=== PATIENT | female | born 1945 | race Caucasian/White ===

== ENCOUNTER 2017-06-08 16:23 | Emergency (ER) | payer MEDICARE, OTHER ==
[~2017-06-08] VITALS: Ht 152.4 cm; Wt 84.0 kg
[~2017-06-08 16:23] MED LIST: Accucheck XX; DILT180C75 PO; GABA300C16 PO; GLIM2TAB PO; LISI-313 PO; METH10TA97 PO; PANT40TA3 PO; SITA100T8 PO
[2017-06-08 16:26] VITALS: Ht 152.4 cm; Wt 84.0 kg
[2017-06-08] MEDS ORDERED: SOD CHLORIDE 0.9% 1,000 ML IV STA ×2 (16:44→18:30)
[2017-06-08] MEDS ORDERED: DILTIAZEM-D5W 125MG/125ML DRIP 125 ML IV STA (16:44)
[2017-06-08] MEDS ORDERED: DILTIAZEM 25 MG INJ IV STA (16:44)
[2017-06-08] MEDS ORDERED: ONDANSETRON 4 MG INJ IV STA ×2 (16:44→18:30)
[2017-06-08] MEDS ORDERED: FAMOTIDINE 20 MG INJ IV STA (16:44)
[2017-06-08 16:57] LABS: BASOPHIL # 0.1 10^3/ul (0.0-0.1); BASOPHILS % 0.4 % (0.0-2.0); EOSINOPHILS % 0.3 % (0.0-7.0); HEMATOCRIT 44.1 % (37.0-47.0); HEMOGLOBIN 14.3 g/dl (12.0-16.0); LYMPHOCYTES # 0.8 10^3/ul (0.8-2.9); LYMPHOCYTES % 6.6 % (15.0-51.0); MEAN CORPUSCULAR HEMOGLOBIN 28.2 pg (29.0-33.0); MEAN CORPUSCULAR HGB CONC 32.4 g/dl (32.0-37.0); MEAN PLATELET VOLUME 9.1 fl (7.4-10.4); MONOCYTE # 0.7 10^3/ul (0.3-0.9); MONOCYTES % 5.9 % (0.0-11.0); NEUTROPHIL # 10.4 10^3/ul (1.6-7.5); NEUTROPHILS % 86.5 % (39.0-77.0); PLATELET COUNT 294 10^3/UL (140-415); RED BLOOD COUNT 5.07 10^6/ul (4.20-5.40); RED CELL DISTRIBUTION WIDTH 13.4 % (11.5-14.5)
--- NOTE | 2017-06-08 17:05 | ERD ---
ER Documentation Chief Complaint Chief Complaint pt bib daughter with c/o nausea, feeling sob, palp hx pacemaker HPI This is a 71-year-old female with a known history of hypertension and atrial fibrillation who presents to the emergency department complaining of multiple episodes of nonbloody nonbilious emesis that occurred 5 hours prior to arrival. Indicates she does have a history of a very sensitive stomach with gastritis and has had multiple similar episodes over the past several years. The last time the patient ate was roughly 24 hours prior to arrival. She ate dinner which included eggplant, broccoli salad with eggs. When she woke this morning she felt nauseous. Just prior to the patient's vomiting and diarrhea she had a diffuse abdominal cramping. The abdominal cramping has been intermittent and is only present just prior to her loose stool and emesis. Roughly several hours prior to arrival shortly after she had another episode of nonbloody nonbilious emesis she states she became very short of breath. She has a history of atrial fibrillation and a cardiac pacemaker on aspirin and Plavix. She felt palpitations but denied any chest pain or pressure that radiated to the neck arm back or jaw. She denies any recent travel or prolonged immobilization. She has no swelling of her lower extremities. She states she has been compliant with all of her medications. Her primary care physician is Dr. Howard. ROS All systems reviewed and are negative except as per history of present illness. Medications Home Meds Active Scripts Diltiazem Hcl* (Cardizem CD*) 180 Mg Cap.sr.24h, 180 MG PO DAILY for 30 Days, # 30 BOTTLE Prov:ALICIA ANGLIN MD 05/15/16 Reported Medications Carvedilol* (Coreg*) 6.25 Mg Tablet, 6.25 MG PO BID, #60 TAB 06/08/17 Valsartan* (Diovan*) 80 Mg Tablet, 80 MG PO DAILY, TAB 06/08/17 Clopidogrel Bisulfate (Clopidogrel) 75 Mg Tablet, 75 MG PO DAILY, #30 TAB 06/08/17 Aspirin* (Aspirin* Chew) 81 Mg Tab.chew, 81 MG PO DAILY, TAB.CHEW 06/08/17 Sitagliptin* (Januvia*) 100 Mg Tablet, 100 MG PO DAILY 06/14/12 Glimepiride* (Glimepiride*) 2 Mg Tablet, 2 MG PO DAILY 06/14/12 Discontinued Reported Medications Gabapentin* (Gabapentin*) 300 Mg Capsule, 300 MG PO BID 06/14/12 Methimazole* (Tapazole*) 10 Mg Tablet, 10 MG PO BID 06/14/12 Pantoprazole* (Protonix*) 40 Mg Tablet.dr, 40 MG PO DAILY 06/14/12 Discontinued Scripts Lisinopril* (Lisinopril*) 5 Mg Tablet, 5 MG PO DAILY for 30 Days, #30 TAB Prov:ALICIA ANGLIN MD 05/15/16 [Accucheck] 1 EA EA No Conflict Check, 1 EA XX 02, #60 BOX Prov:ALICIA ANGLIN MD 05/15/16 Allergies Allergies: Coded Allergies: Penicillins (Verified Allergy, 06/14/12) PMhx/Soc History of Surgery: Yes (hysterectomy, removal of ovaries, appendectomy, pacemaker) Anesthesia Reaction: No Hx Neurological Disorder: No Hx Respiratory Disorders: No Hx Cardiac Disorders: Yes (patient has pacemaker, HTN) Hx Psychiatric Problems: No Hx Miscellaneous Medical Probl: Yes (hysterectomy, ovaries removal, appecdectomy) Hx Alcohol Use: No Hx Substance Use: No Hx Tobacco Use: No Physical Exam Vitals Vital Signs Date Time Temp Pulse Resp B/P Pulse Ox O2 Delivery O2 Flow Rate FiO2 06/08/17 19:30 100.1 101 16 132/61 99 06/08/17 17:59 119 18 155/75 99 Room Air 06/08/17 16:26 98.3 122 24 128/60 98 Physical Exam Constitutional:Well-developed. Well-nourished. HEENT:Normocephalic. Atraumatic.Pupils were equal round reactive to light. Dry mucous membranes.No tonsillar exudates. Neck: No nuchal rigidity. No lymphadenopathy. No posterior cervical spine tenderness or step-offs. Respiratory: Not using accessory muscles of respiration.Lungs were clear to auscultation bilaterally. No rhonchi. No rales. No wheezing. Cardiovascular: Tachycardic with irregular irregular rhythm.No murmurs. No rubs were appreciated.S1, S2 normal. Distal pulses are palpable 2+ bilaterally. GI: Abdomen was soft. Nontender. Non Distended. No pulsatile abdominal masses or bruits. No rebound. No guarding. Bowel sounds were present and normal. Previous vertical incision scar below the umbilicus from total abdominal hysterectomy in 2002 when the patient was diagnosed with ovarian cancer Muscle skeletal: Full range of motion of both the upper and lower extremities bilaterally.Normal muscle tone.No assymetrical calf tenderness or swelling. Skin: No petechia, no purpura. No lesions on the palms or the soles of the feet. No maculopapular rash. NEURO: Patient was alert, awake, orientated x3.No facial droop. Gait observed and normal with no ataxia.Speech had regular rate and rhythm. No focal neurological deficits. Result Diagram: 06/08/170 06/08/17 165 Results 24 hrs Laboratory Tests Test 06/08/17 16:50 White Blood Count 12.010^3/ul Red Blood Count 5.0710^6/ul Hemoglobin 14.3g/dl Hematocrit 44.1% Mean Corpuscular Volume 87.0fl Mean Corpuscular Hemoglobin 28.2pg Mean Corpuscular Hemoglobin Concent 32.4g/dl Red Cell Distribution Width 13.4% Platelet Count 60898^3/UL Mean Platelet Volume 9.1fl Neutrophils % 86.5% Lymphocytes % 6.6% Monocytes % 5.9% Eosinophils % 0.3% Basophils % 0.4% Nucleated Red Blood Cells % 0.0/100WBC Neutrophils # 10.410^3/ul Lymphocytes # 0.810^3/ul Monocytes # 0.710^3/ul Eosinophils # 0.010^3/ul Basophils # 0.110^3/ul Nucleated Red Blood Cells # 0.010^3/ul Prothrombin Time 13.4Sec Prothrombin Time Ratio 1.0 INR International Normalized Ratio 1.01 Activated Partial Thromboplast Time 25.3Sec Sodium Level 143mmol/L Potassium Level 4.7mmol/L Chloride Level 97mmol/L Carbon Dioxide Level 30mmol/L Anion Gap 21 Blood Urea Nitrogen 19mg/dl Creatinine 0.83mg/dl Glucose Level 224mg/dl Calcium Level 10.5mg/dl Total Bilirubin 0.4mg/dl Direct Bilirubin 0.00mg/dl Indirect Bilirubin 0.4mg/dl Aspartate Amino Transf (AST/SGOT) 28IU/L Alanine Aminotransferase (ALT/SGPT) 36IU/L Alkaline Phosphatase 74IU/L Creatine Kinase 53IU/L Creatine Kinase Index 1.7 Creatinine Kinase MB (Mass) 0.91ng/ml Troponin I < 0.012ng/ml B-Type Natriuretic Peptide 1510PG/ML Total Protein 8.9g/dl Albumin 5.3g/dl Globulin 3.60g/dl Albumin/Globulin Ratio 1.47 Amylase Level 89U/L Lipase 78U/L Current Medications Medications (Trade) Dose Ordered Sig/Carlyle Route PRN Reason Start Time Stop Time Status Last Admin Dose Admin Diltiazem HCl 20 mg 20 mg ONCE STAT IV 06/08/17 16:44 06/08/17 16:45 Cancel Diltiazem HCl 125 ml @ 5 mls/hr ONCE STAT IV 06/08/17 16:44 06/09/17 17:43 Cancel Sodium Chloride (NS) 1,000 ml @ 1,000 mls/hr Q1H STAT IV 06/08/17 16:44 06/08/17 17:43 DC 06/08/17 17:05 Ondansetron HCl (Zofran Inj) 4 mg ONCE STAT IV 06/08/17 16:44 06/08/17 16:46 DC 06/08/17 17:04 Famotidine (Pepcid Iv) 20 mg ONCE STAT IV 06/08/17 16:44 06/08/17 16:46 DC 06/08/17 17:05 IV Flush 10 ml 10 ml STK-MED ONCE .ROUTE 06/08/17 18:14 06/08/17 18:15 DC Sodium Chloride (NS) 100 ml @ ud STK-MED ONCE .ROUTE 06/08/17 18:14 06/08/17 18:15 DC Iodixanol 100 ml 100 ml STK-MED ONCE .ROUTE 06/08/17 18:14 06/08/17 18:15 DC Sodium Chloride (NS) 1,000 ml @ 1,000 mls/hr Q1H STAT IV 06/08/17 18:30 06/08/17 19:29 DC 06/08/17 19:16 Ondansetron HCl (Zofran Inj) 4 mg ONCE STAT IV 06/08/17 18:30 06/08/17 18:31 DC Procedures/MDM The patient presented to the emergency department with shortness of breath. My differential diagnosis included but was not limited to upper airway obstruction , CHF, pulmonary embolism, cardiac ischemia, pneumonia, pneumothorax, anemia, drug overdose, pulmonary edema, COPD or asthma. 12 Lead EKG tracing ordered and reviewed by myself showed: Tachycardic with irregularly irregular rhythm of 124 bpm and no arrhythmia. IA interval not appreciated is patient had no P waves secondary to atrial fibrillation with RVR QRS duration normal. No ST segment elevation No ST segment depression. No changes consistent with acute ischemia. 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 The patient had signs of clinical dehydration secondary to the emesis and diarrhea. Patient received a liter bolus of 0.9 normal saline. She was given Zofran as an antiemetic and IV Pepcid. Given that the patient was short of breath I did feel is necessary to obtain a CT scan of the patient's chest and there is no evidence of a pulmonary embolism. The patient's A. fib with RVR resolved after 20 mg of Cardizem and IV fluids. The patient had no elevation in her cardiac enzymes and I did feel her palpitations were result of her vomiting and diarrhea that likely was a viral etiology. The patient states she felt comfortable being discharged home however was offered a trial of admission. Her daughter was present during her emergency room visit and stated that they will follow-up with her primary care physician on an outpatient basis. She was sent home with antiemetics. The patient was discharged home in fair condition. They were instructed to return to the emergency department at any time if there was any worsening of their condition. The patient stated they would follow up with their PCP in the next 24-48 hours to initiate a suitable medication regimen under the care of their PCP as well as to allow their PCP to monitor any drug reactions. The patient was discharged home with prescriptions after they gave informed consent to the new medication. They were also fully informed by myself on the adverse effects and adverse drug interactions in order to provide adequate safeguards to prevent possible adverse reactions to medications. Departure Diagnosis: Primary Impression: Atrial fibrillation with RVR Additional Impressions: Nausea vomiting and diarrhea Dehydration, mild Condition: Fair [employer] SPICER Jun 08, 2017 17:05
[2017-06-08 17:20] LABS: ALANINE AMINOTRANSFERASE 36 IU/L (13-69); ALBUMIN 5.3 g/dl (3.3-4.9); ALBUMIN/GLOBULIN RATIO 1.47; ALKALINE PHOSPHATASE 74 IU/L (42-121); ANION GAP 21 (8-16); ASPARTATE AMINO TRANSFERASE 28 IU/L (15-46); BILIRUBIN,INDIRECT 0.4 mg/dl (0-1.1); BILIRUBIN,TOTAL 0.4 mg/dl (0.2-1.3); BLOOD UREA NITROGEN 19 mg/dl (7-20); CALCIUM 10.5 mg/dl (8.4-10.2); CARBON DIOXIDE 30 mmol/L (21-31); CHLORIDE 97 mmol/L (97-110); CREATINE KINASE 53 IU/L (23-200); CREATININE 0.83 mg/dl (0.44-1.00); GLUCOSE 224 mg/dl (70-220); POTASSIUM 4.7 mmol/L (3.5-5.1); SODIUM 143 mmol/L (135-144); TOTAL PROTEIN 8.9 g/dl (6.1-8.1)
[2017-06-08 17:23] LABS: INR 1.01; PROTIME 13.4 Sec (11.9-14.9)
[2017-06-08 17:24] LABS: PARTIAL THROMBOPLASTIN TIME 25.3 Sec (25.0-35.0)
[2017-06-08 17:32] LABS: B-TYPE NATRIURETIC PEPTIDE 1510 PG/ML (0-125); CK-MB 0.91 ng/ml (0.0-2.4)
[2017-06-08 17:35] LABS: TROPONIN-I < 0.012 ng/ml (0.00-0.12)
--- NOTE | 2017-06-08 17:52 | RADRPT ---
PROCEDURE: XR Chest. CLINICAL INDICATION: Shortness of breath TECHNIQUE: Single portable view of the chest was obtained COMPARISON: June 14, 2012 FINDINGS: The trachea is midline. The cardiac silhouette is enlarged and pulmonary vascularity are within norm al limits. The lungs are clear. The costophrenic angles are sharp. There is a dual lead left-sided p acer device. IMPRESSION: 1. Cardiomegaly. No evidence of acute cardiopulmonary disease. RPTAT: AAPP Physician Tulio Date Time Electronically viewed and signed by Afshin Tapia Physician on 06/08/2017 17:52 NICHOLE/
[2017-06-08] MEDS ORDERED: ASPI81TA3 PO (18:01)
[2017-06-08] MEDS ORDERED: CLOP75TA27 PO (18:01)
[2017-06-08] MEDS ORDERED: VALS80TA2 PO (18:03)
[2017-06-08] MEDS ORDERED: CARV6.25 PO (18:12)
[2017-06-08] MEDS ORDERED: SOD CHLORIDE 0.9% 100 ML ONE (18:14)
[2017-06-08] MEDS ORDERED: IODIXANOL LOCM 100 ML BTL ONE (18:14)
--- NOTE | 2017-06-08 19:40 | RADRPT ---
PROCEDURE: CTA Chest. CLINICAL INDICATION: chest pain TECHNIQUE: The study was performed utilizing a multidetector CT scanner. Direct spiral 1 mm axial sections were obtained from the thoracic inlet to the upper abdomen with the use of 100 cc of Omnip aque 350 nonionic intravenous contrast material and reformatted at 3 mm. Coronal, sagittal and 3-D a ngiographic reformations were obtained. The images were reviewed on a PACS workstation. CT D I 56 mCi Dose 612 mGy/cm Individualized dose optimization technique was used for the performance of this exam. This included 1. Automated exposure control. 2. Adjustment of the mA and / or kV according to the patient's size. 3. Use of iterative reconstruction technique. COMPARISON: No prior studies are available for comparison. FINDINGS: There is no central or peripheral pulmonary embolism. Thoracic aorta is normal with no dissection o r aneurysm. No lung infiltrate or mass is seen. There is no hilar or mediastinal adenopathy or mass . No pleural or pericardial effusion is visualized. There is no pneumothorax. Pacemaker wires are present in the heart. There is cardiomegaly. No upper abdominal or adrenal mass is present. The osseous structures appear normal. IMPRESSION: No pulmonary embolism. No thoracic aortic aneurysm or dissection. No pneumonia. Cardiomegaly. .Nic Cohen MD, MD Date Time Electronically viewed and signed by .Nic Cohen MD, on 06/08/2017 19:40 .A/
[2017-06-08] MEDS ORDERED: ONDA4TAB14 PO (20:41)
[2017-06-08 21:00] VITALS: BP 137/66; PULSE 88; RESP 14; TEMP 99.1
== END 2017-06-08 21:10 | disposition home or self-care (01) ==
LOC: E/R 16:23
DX: I48.91 Unspecified atrial fibrillation (principal); R40.2252 Coma scale, best verbal response, oriented, at arrival to emergency department; R19.7 Diarrhea, unspecified; E86.0 Dehydration; I10 Essential (primary) hypertension; R40.2142 Coma scale, eyes open, spontaneous, at arrival to emergency department; R40.2362 Coma scale, best motor response, obeys commands, at arrival to emergency department; Z79.82 Long term (current) use of aspirin; Z79.84 Long term (current) use of oral hypoglycemic drugs; Z95.0 Presence of cardiac pacemaker
CPT/HCPCS: 36415; 71010; 71275; 80053; 82150; 82550; 82553; 83690; 83880; 84484; 85025; 85610; 85730; 93005; 96374; 96375; 99285; J2405; J7030; Q9967

== ENCOUNTER 2018-03-14 21:25 | Emergency (ER) | END 2018-03-15 00:46 | disposition home or self-care (01) ==

== ENCOUNTER 2018-03-20 04:47 | Emergency (ER) | END 2018-03-20 07:28 | disposition home or self-care (01) ==

== ENCOUNTER 2018-04-04 21:21 | Emergency (ER) | END 2018-04-05 01:37 | disposition home or self-care (01) ==

== ENCOUNTER 2018-05-25 10:01 | Inpatient (IN) | END 2018-05-28 19:03 | disposition home health service (06) | DRG 690 ==

== ENCOUNTER 2018-06-29 18:58 | Inpatient (IN) | payer MEDICARE, OTHER ==
[~2018-06-29] VITALS: Ht 160 cm; Wt 87.0 kg
[~2018-06-29 18:58] MED LIST changes: +ASPI-903 PO; -Accucheck XX; +CARV6.25 PO; +CLOP75TA27 PO; -DILT180C75 PO; -GABA300C16 PO; -LISI-313 PO; +LOPE2CAP PO; -METH10TA97 PO; +ONDA4TAB14 PO; -PANT40TA3 PO; +SITA100T11 PO; -SITA100T8 PO
[2018-06-29] MEDS ORDERED: SOD CHLORIDE 0.9% 500 ML IV STA ×2 (19:29→21:06)
[2018-06-29] MEDS ORDERED: ONDANSETRON 4 MG INJ IV STA (19:29)
[2018-06-29] MEDS ORDERED: morphine 2 MG INJ IV STA (19:29)
--- NOTE | 2018-06-29 19:29 | ERD ---
ER Documentation Chief Complaint Chief Complaint DIZZY, WEAK, NEAR SYNCOPE X'S 2 DAYS HPI 72-year-old female history of diabetes, hypertension, chronic atrial fibrillation, coronary artery disease, pacemaker, remote ovarian cancer status post hysterectomy and bilateral oophorectomy, chronic diarrhea presents to the ED complaining of a 1 day history of moderate, moderate, generalized, nonradiating abdominal pain with nausea and multiple episodes of nonbloody nonbilious emesis. No diarrhea or constipation. No dysuria, polyuria hematuria. Denies chest pain, palpitations or shortness of breath. No relieving or exacerbating factors. No fevers or chills. ROS All systems reviewed and are negative except as per history of present illness. Medications Home Meds Active Scripts Loperamide Hcl* (Imodium*) 2 Mg Capsule, 2 MG PO .AFTER EA LOOSE BM PRN for DIARRHEA, #10 TAB Prov:CHRISTIAN GONZALEZ MD 04/05/18 Ondansetron (Ondansetron Odt) 4 Mg Tab.rapdis, 4 MG PO Q6H PRN for NAUSEA AND/OR VOMITING, #10 TAB Prov:CHRISTIAN GONZALEZ MD 04/05/18 Reported Medications Carvedilol* (Coreg*) 6.25 Mg Tablet, 6.25 MG PO BID, #60 TAB 06/08/17 Clopidogrel Bisulfate (Clopidogrel) 75 Mg Tablet, 75 MG PO DAILY, #30 TAB 06/08/17 Aspirin* (Aspirin* Chew) 81 Mg Tab.chew, 81 MG PO DAILY, TAB.CHEW 06/08/17 Sitagliptin* (Januvia*) 100 Mg Tablet, 100 MG PO DAILY 06/14/12 Glimepiride* (Glimepiride*) 2 Mg Tablet, 2 MG PO DAILY 06/14/12 Allergies Allergies: Coded Allergies: Penicillins (Unverified Allergy, Unknown, 05/23/18) PMhx/Soc Reviewed in chart. As per HPI. 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 No family history relevant to presenting complaint Physical Exam Vitals Temperature: 98.3. Blood pressure: 125/80. Pulse: 85. Respirations: 20. O2 saturation 100%. Physical Exam Const: Moderate distress. Head: Atraumatic Eyes: Normal Conjunctiva ENT: Normal External Ears, Nose and Mouth. Neck: Full range of motion. No JVD. Nontender. Resp: BS equal and clear to auscultation bilaterally Cardio: Irregular rate and rhythm, no murmurs Abd: Soft, distended, diffuse, moderate tenderness. No rebound or guarding. Skin: No petechiae or rashes Back: No midline or flank tenderness Ext: No cyanosis, or edema Neur: Awake and alert. Psych: Anxious but not depressed Result Diagram: 06/30/18 0552 06/30/18 0552 Results 24 hrs Laboratory Tests Test 06/29/18 20:09 06/29/18 20:10 Urine Color YELLOW Urine Clarity SLIGHTLY CLOUDY Urine pH 6.0 Urine Specific Helm 1.009 Urine Ketones TRACE mg/dL Urine Nitrite NEGATIVE mg/dL Urine Bilirubin NEGATIVE mg/dL Urine Urobilinogen NEGATIVE mg/dL Urine Leukocyte Esterase 3+ Jen/ul Urine Microscopic RBC 1 /HPF Urine Microscopic WBC > 182 /HPF Urine Bacteria FEW /HPF Urine Hemoglobin 1+ mg/dL Urine Glucose NEGATIVE mg/dL Urine Total Protein NEGATIVE mg/dl White Blood Count 14.8 10^3/ul Red Blood Count 4.82 10^6/ul Hemoglobin 13.2 g/dl Hematocrit 40.8 % Mean Corpuscular Volume 84.6 fl Mean Corpuscular Hemoglobin 27.4 pg Mean Corpuscular Hemoglobin Concent 32.4 g/dl Red Cell Distribution Width 15.3 % Platelet Count 373 10^3/UL Mean Platelet Volume 9.1 fl Immature Granulocytes % 0.300 % Neutrophils % 83.9 % Lymphocytes % 11.2 % Monocytes % 3.6 % Eosinophils % 0.7 % Basophils % 0.3 % Nucleated Red Blood Cells % 0.0 /100WBC Immature Granulocytes # 0.050 10^3/ul Neutrophils # 12.4 10^3/ul Lymphocytes # 1.7 10^3/ul Monocytes # 0.5 10^3/ul Eosinophils # 0.1 10^3/ul Basophils # 0.0 10^3/ul Nucleated Red Blood Cells # 0.0 10^3/ul Sodium Level 138 mmol/L Potassium Level 4.9 mmol/L Chloride Level 93 mmol/L Carbon Dioxide Level 31 mmol/L Anion Gap 14 Blood Urea Nitrogen 30 mg/dl Creatinine 1.09 mg/dl Est Glomerular Filtrat Rate mL/min mL/min Glucose Level 169 mg/dl Calcium Level 9.9 mg/dl Total Bilirubin 0.3 mg/dl Direct Bilirubin 0.00 mg/dl Indirect Bilirubin 0.3 mg/dl Aspartate Amino Transf (AST/SGOT) 22 IU/L Alanine Aminotransferase (ALT/SGPT) 20 IU/L Alkaline Phosphatase 71 IU/L Troponin I < 0.012 ng/ml Total Protein 7.8 g/dl Albumin 4.7 g/dl Globulin 3.10 g/dl Albumin/Globulin Ratio 1.51 Lipase 128 U/L Current Medications Medications Dose Sig/Carlyle Start Time Status Last (Trade) Ordered Route PRN Stop Time Admin Dose Reason Admin Sodium 500 ml @ Q1H STAT 06/29/18 DC 06/29/18 Chloride 500 mls/hr IV 19:29 20:00 06/29/18 20:28 Morphine 2 mg ONCE STAT 06/29/18 DC 06/29/18 Sulfate IV 19:29 20:00 (morphine) 06/29/18 19:31 Ondansetron 4 mg ONCE STAT 06/29/18 DC 06/29/18 HCl (Zofran IV 19:29 20:00 Inj) 06/29/18 19:31 IV Flush 10 ml STK-MED 06/29/18 DC 06/29/18 (NS 10 ml) ONCE .ROUTE 19:48 19:48 06/29/18 19:49 Sodium 100 ml @ ud STK-MED 06/29/18 DC 06/29/18 Chloride ONCE .ROUTE 19:48 19:48 06/29/18 19:49 Iohexol 150 ml STK-MED 06/29/18 DC 06/29/18 (Omnipaque ONCE .ROUTE 19:48 19:48 300mg/ ml) 06/29/18 19:49 Sodium 500 ml @ Q1H STAT 06/29/18 DC 06/29/18 Chloride 500 mls/hr IV 21:06 21:10 06/29/18 22:05 Procedures/MDM DOCUMENTS REVIEWED: ED nurse, prior ED, prior records EKG: Time: 1923. Atrial fibrillation. Ventricular rate 74. Normal QRS. No acute ST segment elevation or depression. T wave inversions in leads III and aVF. My Interpretation IMAGING: Chest AP portable: Cardiomegaly. Costophrenic angles are clear. No effusions or infiltrates. Left-sided pacemaker with leads intact. No mediastinal widening. My interpretation. PROCEDURE: CT Abdomen and Pelvis with contrast. CLINICAL INDICATION: Abdominal pain. TECHNIQUE: CT scan of the abdomen and pelvis with contrast was performed on a multi-detector high-resolution CT scanner. The patient was scanned following the uncomplicated intravenous administration of 100 cc of Omnipaque 300. Coronal and sagittal reformatted images were obtained from the axial source images. Images were reviewed on a high-resolution PACS workstation. The total exam CTDI equals 18.06 mGy and the total exam DLP equals 1030.71 mGy-cm. DICOM images are available. One or more of the following dose reduction techniques were utilized: 1.) Automated exposure control 2.) Adjustment of the mA +/- kV according to patient's size 3.) Use of iterative reconstruction technique. COMPARISON: None. FINDINGS: CT abdomen: The lung bases are clear. The heart size is enlarged, without pericardial thickening or effusion. The liver is normal in size and density without focal mass or intrahepatic biliary dilatation. The spleen is normal in size and homogeneous in density. The stomach is partially collapsed, but is grossly unremarkable. The pancreas as visualized is normal. The gallbladder and biliary tree are unremarkable and there is no evidence for biliary dilatation. 14 mm indeterminate nodule in the left adrenal. An MRI examination may be of further use. Small cysts are seen in the left kidney, measuring up to 22 mm. Partial duplication of the bilateral kidneys. Otherwise, the bilateral kidneys are symmetrically unremarkable. No renal calculus or obstructive uropathy or mass lesion is seen. The aorta is of normal caliber. The abdominal aorta is tortuous. Aortic vascular calcifications are present. There is no retroperitoneal lymphadenopathy. The shazia hepatis region is clear. Dilated fluid and air-filled loops of small bowel measure up to 33 mm with narrow caliber distal and terminal ileum. Findings compatible small bowel obstruction. CT pelvis: Dilated loops of air and fluid-filled small bowel seen in the pelvis with transition to narrow caliber distal and terminal ileum. Small bowel obstruction. The pelvic organs are otherwise normal. The pelvic sidewalls and inguinal regions are clear. The sigmoid colon and rectum are remarkable for mild proximal sigmoid diverticulosis. No mass or adenopathy is seen. No free fluid is identified. No acute inflammation is seen. The bladder is normal. The surrounding osseous structures are remarkable for moderate degenerative changes at the L3-4 L5-S1 levels with disc space narrowing and near bone on bone articulation at the L3-4 level. Posterior facet degenerative changes are seen at these levels, greater on the left at the L5-S1 level. No osteolytic or osteoblastic lesion is detected. IMPRESSION: 1. Small bowel obstruction. 2. 14 mm indeterminate nodule in the left adrenal. These findings and impression discussed with Dr. Pritchett of the [facility] emergency department at the conclusion of this examination by the undersigned interpreting radiologist on 06/29/2018 at 2129 hours. RPTAT: UU Physician Sun Date Time Electronically viewed and signed by Physician Sun on 06/29/2018 21:39 MEDICAL DECISION MAKIN-year-old female history of diabetes, hypertension, chronic atrial fibrillation, coronary artery disease, pacemaker, remote ovarian cancer status post hysterectomy and bilateral oophorectomy, chronic diarrhea presents to the ED complaining of a 1 day history of generalized abdominal pain with nausea and multiple episodes of nonbloody nonbilious emesis. CBC significant for leukocytosis. Chemistry reveals elevated BUN/creatinine consistent with renal insufficiency likely secondary to dehydration but no electrolyte abnormalities. LFTs are unremarkable and lipase not elevated. Urinalysis reveals pyuria. CT of the abdomen and pelvis reveals dilated loops of bowel consistent with small bowel obstruction. Patient treated with IV hydration, analgesics and antiemetics. Antibiotics initiated based on patient's previous culture positive ESBL UTI. Surgery consulted. Admit to [facility] for further evaluation and management. CALLS/CONSULTS: Time: 21:40, Dr. Contreras CALLS/CONSULTS: Time: 21:45, Dr. Bailon PATIENT CARE TRANSITIONED: Time: 12:46, Dr. Anny Mahan. Counseled patient and family regarding diagnosis, diagnostic results and plan for admission. 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
[2018-06-29] MEDS ORDERED: SOD CHLORIDE 0.9% 100 ML ONE (19:48)
[2018-06-29] MEDS ORDERED: IOHEXOL 300MG/ML 150 ML BTL ONE (19:48)
[2018-06-29] MEDS ORDERED: ACETAMINOPHEN 325 MG TAB PO PRN (22:00)
[2018-06-29] MEDS ORDERED: MEROPENEM 1 GM/50ML(PMX) 50 ML IVPB SCH (22:00)
[2018-06-29] MEDS ORDERED: ONDANSETRON 4 MG INJ IV PRN ×2 (22:00→23:00)
[2018-06-29] MEDS ORDERED: metroNIDAZOLE 500 MG/NS (PMX) 100 ML IVPB ONE (22:00)
[2018-06-29] MEDS ORDERED: ACETAMINOPHEN 650 MG SUPP PR PRN (23:00)
[2018-06-29] MEDS ORDERED: NACL 0.9% 3 ML SYG IV SCH (23:00)
[2018-06-29] MEDS ORDERED: morphine 2 MG INJ IV PRN (23:00)
[2018-06-29 23:43] VITALS: Ht 160 cm; Wt 87.0 kg
[2018-06-30] VITALS (16 sets, daily range): BP systolic 73–137; BP diastolic 45–62; PULSE 71–104; RESP 16–18
[2018-06-30] MEDS: SOD CHLORIDE 0.9% 1,000 ML IV SCH ×3 (00:19→18:26)
[2018-06-30] MEDS ORDERED: SOD CHLORIDE 0.9% 500 ML IV ONE (04:00)
--- NOTE | 2018-06-30 04:16 | NUR ---
HYPOTENSION PATIENT'S BP LOW 70/53, NOTIFIED PMD, ORDERD TO GIVE 500 CC BOLUS OF NS X 1. PATIENT REMAINED AWAKE AND ALERT.
--- NOTE | 2018-06-30 07:30 | NUR ---
EOSS: PATIENT STABILIZE WITH FLUID CHALLENGE , AFTER A 500CC OF NS BOLUS. DAUGHTER NATALIA AT BEDSIDE. WITH DIARRHEA, THAT ACCORDING TO DAUGHTER WAS CHRONIC. AFIB ON THE MONITOR.
[2018-06-30] MEDS: FAMOTIDINE 20 MG INJ IV SCH ×2 (08:34→22:11)
[2018-06-30] MEDS: ENOXAPARIN 30 MG/0.3 ML SYG SC SCH (08:43)
--- NOTE | 2018-06-30 11:17 | HP ---
Date/Time of Note Date/Time of Note DATE: 06/30/18 TIME: 11:16 Assessment/Plan VTE Prophylaxis Risk score (from Ns)>0 risk: 5 SCD applied (from Ns): No SCD contraindicated: other Pharmacological prophylaxis: LMWH Lines/Catheters IV Catheter Type (from [facility]): Peripheral IV Assessment/Plan Hospital Course 1) small bowel obstruction - NPO - IV fluids - surgery consult pending - monitor clinically 2) urinary tract infection - IV antibiotics 3) atrial fibrillation - monitor on telemetry - PO meds on hold HPI/ROS Admit Date/Time Admit Date/Time Jun 29, 2018 at 21:49 Hx of Present Illness Patient with diabetes, hypertension, atrial fibrillation s/p pacemaker placement, coronary artery disease comes in to the ER with abdominal pain, nausea and vomiting x1d. Patient was found to have small bowel obstruction. PMH/Family/Social Past Medical History Medical History: cancer, coronary artery disease, diabetes, hypertension Coded Allergies: Penicillins (Unverified Allergy, Unknown, 05/23/18) Past Surgical History Past Surgical Hx: appendectomy, other Family History Significant Family History: heart disease Social History Smoking Status: Never smoker Exam/Review of Systems Vital Signs Vitals Vital Signs Date Temp Pulse Resp B/P (MAP) Pulse Ox O2 O2 Flow FiO2 Time Delivery Rate 06/30/18 71 94/53 (67) 94 09:15 06/30/18 98.4 16 07:43 06/29/18 Room Air 22:52 Intake and Output 06/29/18 06/29/18 06/30/18 1515:00 23:00 07:00 IntakeIntake Total 1650 ml BalanceBalance 1650 ml Exam Constitutional: well developed Head: normocephalic, atraumatic Neck: supple Respiratory: diminished breath sounds Cardiovascular: regular rate and rhythm Gastrointestinal: soft, non-tender Extremities: normal pulses Medications Medications Current Medications Ondansetron HCl (Zofran Inj) 4 mg BRIDGE ORDER PRN IV NAUSEA AND/OR VOMITING; Start 06/29/18 at 22:00; Stop 06/30/18 at 21:59 Acetaminophen (Tylenol Tab) 650 mg ER BRIDGE PRN PO MILD PAIN(1-3)OR ELEVATED TEMP; Start 06/29/18 at 22:00; Stop 06/30/18 at 21:59 Meropenem/Sodium Chloride 50 ml @ 100 mls/hr ONCE IVPB Last administered on 1 08/30/17at 22:21; Admin Dose 100 MLS/HR; Start 06/29/18 at 22:00 Sodium Chloride 1,000 ml @ 100 mls/hr Q10H IV Last administered on 06/30/18at 08:34; Admin Dose 100 MLS/HR; Start 06/29/18 at 22:45 IV Flush (NS 3 ml) 3 ml PER PROTOCOL IV ; Start 06/29/18 at 23:00 Ondansetron HCl (Zofran Inj) 4 mg Q6H PRN IV NAUSEA AND/OR VOMITING Last administered on 06/30/18at 00:20; Admin Dose 4 MG; Start 06/29/18 at 23:00 Acetaminophen (Tylenol Supp) 650 mg Q6H PRN [place] PAIN LEVEL 1-3 OR FEVER; Start 06/29/18 at 23:00 Morphine Sulfate (morphine) 2 mg Q4H PRN IV PAIN LEVEL 7-10; Start 06/29/18 at 23:00 Famotidine (Pepcid Iv) 20 mg Q12 IV Last administered on 06/30/18at 08:34; Admin Dose 20 MG; Start 06/30/18 at 09:00 Enoxaparin Sodium (Lovenox) 30 mg DAILY SC Last administered on 06/30/18at 08: 43; Admin Dose 30 MG; Start 06/30/18 at 09:00 Results Result Diagram: 06/30/18 0552 06/30/18 0552 Results 24 hrs Laboratory Tests Test 06/29/18 20:09 06/29/18 20:10 06/30/18 04:03 06/30/18 05:52 Urine Color YELLOW Urine Clarity SLIGHTLY CLOUDY A Urine pH 6.0 Urine Specific 1.009 [place] Urine Ketones TRACE A Urine Nitrite NEGATIVE Urine Bilirubin NEGATIVE Urine NEGATIVE Urobilinogen Urine Leukocyte 3+ H Esterase Urine 1 Microscopic RBC Urine > 182 H Microscopic WBC Urine Bacteria FEW A Urine 1+ H Hemoglobin Urine Glucose NEGATIVE Urine Total NEGATIVE Protein White Blood 14.8 #H 7.3 # Count Red Blood Count 4.82 4.20 Hemoglobin 13.2 11.4 L Hematocrit 40.8 36.4 L Mean 84.6 86.7 Corpuscular Volume Mean 27.4 L 27.1 L Corpuscular Hemoglobin Mean 32.4 31.3 L Corpuscular Hemoglobin Conc ent Red Cell 15.3 H 15.4 H Distribution Width Platelet Count 373 299 Mean Platelet 9.1 9.1 Volume Immature 0.300 0.300 Granulocytes % Neutrophils % 83.9 H 77.9 H Lymphocytes % 11.2 L 11.5 L Monocytes % 3.6 9.2 Eosinophils % 0.7 0.8 Basophils % 0.3 0.3 Nucleated Red 0.0 0.0 Blood Cells % Immature 0.050 H 0.020 Granulocytes # Neutrophils # 12.4 H 5.7 Lymphocytes # 1.7 0.8 Monocytes # 0.5 0.7 Eosinophils # 0.1 0.1 Basophils # 0.0 0.0 Nucleated Red 0.0 0.0 Blood Cells # Sodium Level 138 141 Potassium Level 4.9 4.4 Chloride Level 93 L 102 Carbon Dioxide 31 28 Level Anion Gap 14 H 11 Blood Urea 30 H 25 H Nitrogen Creatinine 1.09 H 0.82 Est Glomerular Filtrat Rate mL/min Glucose Level 169 152 Calcium Level 9.9 8.4 Total Bilirubin 0.3 0.4 Direct 0.00 0.00 Bilirubin Indirect 0.3 0.4 Bilirubin Aspartate Amino 22 17 Transf (AST/SGO T) Alanine 20 22 Aminotransferas e (ALT/SGPT) Alkaline 71 44 Phosphatase Troponin I < 0.012 Total Protein 7.8 6.1 # Albumin 4.7 3.7 # Globulin 3.10 2.40 Albumin/Globuli 1.51 1.54 n Ratio Lipase 128 Bedside Glucose 177 Hemoglobin A1c 6.3 H NEVAEH JONAS Jun 30, 2018 11:17
[2018-06-30] MEDS ORDERED: KETOROLAC 15 MG INJ IV PRN (11:30)
[2018-06-30] MEDS ORDERED: DEXTROSE 50% 50 ML SYRINGE IV PRN ×2 (12:00)
[2018-06-30] MEDS ORDERED: GLUCAGON 1 MG INJ IM PRN (12:00)
[2018-06-30] MEDS ORDERED: GLUCOSE GEL 15 GRAM TUBE BUCCAL PRN (12:00)
[2018-06-30] MEDS: INSULIN ASPART [NOVOLOG] 3 ML PEN SC SCH ×2 (12:00→17:17)
[2018-06-30] MEDS ORDERED: GLUCOSE GEL 15 GRAM TUBE PO PRN ×2 (12:00)
--- NOTE | 2018-06-30 12:00 | CONS ---
Date/Time of Note Date/Time of Note DATE: 06/30/18 TIME: 11:47 Assessment/Plan Assessment/Plan Chief Complaint/Hosp Course 1. Abdominal pain, nausea, vomiting with CT concerning for small bowel obstruction: + Bowel function per patient -SBFT -Pain management -Antiemetics as needed -N.p.o. -NG tube (discussed with patient however refusing at this time > will continue to monitor) 2. Diverticulosis: -Lifestyle modification -Outpatient follow-up 3. Atherosclerosis: -Medical management 4. Leukocytosis: Resolved 5. Hypochromic anemia: -Monitor and transfuse as needed 6. UTI: -abx per sensitivity -frequent bladder emptying/cath care 7. Atrial fibrillation history with hypotension: Improved -Cardiac optimization 8. 14 mm adrenal nodule: -Medical follow-up Thank you. Patient seen and examined in collaboration with Dr. Wali Bailon. Consultation Date/Type/Reason Admit Date/Time Jun 29, 2018 at 21:49 Date of Consultation: Jun 30, 2018 Type of Consult Surgical Reason for Consultation Small bowel obstruction Requesting Provider: NIDHI PRITCHETT MD Hx of Present Illness Maki Combs is a 72-year-old woman with past medical history of diabetes, hypertension, atrial fibrillation status post pacemaker placement, coronary artery disease, ovarian cancer status post total hysterectomy and radiation, appendectomy who presents to the ER with complaints of abdominal pain. Abdominal pain is described as diffuse and strong times 1 day. Associated symptoms include nausea with vomiting, nonbloody emesis, dysuria. She also reports having had no bowel movements or flatus times 1 day. Notably she had a recent hospitalization and was given antibiotics for UTI for 14 days. After which, her bowel movements have become more irregular. She denies fevers, chills, congested cough, chest pain, palpitations, hematochezia, melena, hematemesis. CT imaging of the abdomen shows dilated loops of air and fluid filled small bowel seen in pelvis with transition to narrow caliber distal and terminal ileum, concerning for small bowel obstruction. General surgery was a sked to evaluate. 12 point review of systems was performed and is negative except for stated in HPI. Past Medical History Medical History: cancer, coronary artery disease, diabetes, hypertension Medications Current Medications Ondansetron HCl (Zofran Inj) 4 mg BRIDGE ORDER PRN IV NAUSEA AND/OR VOMITING; S tart 06/29/18 at 22:00; Stop 06/30/18 at 21:59 Acetaminophen (Tylenol Tab) 650 mg ER BRIDGE PRN PO MILD PAIN(1-3)OR ELEVATED TE MP; Start 06/29/18 at 22:00; Stop 06/30/18 at 21:59 Meropenem/Sodium Chloride 50 ml @ 100 mls/hr ONCE IVPB Last administered on 06/29/18at 22:21; Admin Dose 100 MLS/HR; Start 06/29/18 at 22:00 Sodium Chloride 1,000 ml @ 100 mls/hr Q10H IV Last administered on 06/30/18at 08:34; Admin Dose 100 MLS/HR; Start 06/29/18 at 22:45 IV Flush (NS 3 ml) 3 ml PER PROTOCOL IV ; Start 06/29/18 at 23:00 Ondansetron HCl (Zofran Inj) 4 mg Q6H PRN IV NAUSEA AND/OR VOMITING Last administered on 06/30/18at 00:20; Admin Dose 4 MG; Start 06/29/18 at 23:00 Acetaminophen (Tylenol Supp) 650 mg Q6H PRN [place] PAIN LEVEL 1-3 OR FEVER; Start 06/29/18 at 23:00 Morphine Sulfate (morphine) 2 mg Q4H PRN IV PAIN LEVEL 7-10; Start 06/29/18 at 23:00 Famotidine (Pepcid Iv) 20 mg Q12 IV Last administered on 06/30/18at 08:34; Admin Dose 20 MG; Start 06/30/18 at 09:00 Enoxaparin Sodium (Lovenox) 30 mg DAILY SC Last administered on 06/30/18at 08:43; Admin Dose 30 MG; Start 06/30/18 at 09:00 Meropenem/Sodium Chloride 50 ml @ 100 mls/hr Q12 IVPB ; Start 06/30/18 at 21:00 Ketorolac Tromethamine (Toradol) 15 mg Q6H PRN IV PAIN; Start 06/30/18 at 11:30; Stop 07/03/18 at 11:29 Allergies: Coded Allergies: Penicillins (Unverified Allergy, Unknown, 05/23/18) Past Surgical History As above Past Surgical Hx: appendectomy, other Family History Significant Family History: no pertinent family hx Social History Alcohol Use: none Smoking Status: Never smoker Exam/Review of Systems Vital Signs Vitals Vital Signs Date Temp Pulse Resp B/P (MAP) Pulse Ox O2 O2 Flow FiO2 Time Delivery Rate 06/30/18 71 94/53 (67) 94 09:15 06/30/18 98.4 16 07:43 06/29/18 Room Air 22:52 Intake and Output 06/29/18 06/29/18 06/30/18 1515:00 23:00 07:00 IntakeIntake Total 1650 ml BalanceBalance 1650 ml Exam Constitutional: alert, oriented Psych: nl mood/affect; No anxiety Head: normocephalic, atraumatic Eyes: nl conjunctiva, EOMI, nl sclera ENMT: nl external ears & nose, nl lips & teeth, mucosa pink and moist Neck: supple, non-tender; No jvd, No bruits, No masses, No thyromegaly, No nuchal rigidity, No other Respiratory: normal air movement; No labored breathing Cardiovascular: regular rate and rhythm, nl pulses Gastrointestinal: soft, non-tender, surgical scars; No distended, No rebound or guarding Genitourinary - Female: nl external genitalia Musculoskeletal: nl extremities to inspection, nl gait and stance Extremities: normal pulses Neurological: nl mental status, nl speech, nl strength Skin: nl turgor; No rash or lesions JAIR MEDEIROS NP Jun 30, 2018 12:00
[2018-06-30] MEDS: MEROPENEM 1 GM/50ML(PMX) 50 ML IVPB SCH ×2 (12:07→22:11)
[2018-06-30] MEDS ORDERED: IOHEXOL 300MG/ML 150 ML BTL ONE ×2 (14:05)
--- NOTE | 2018-06-30 18:23 | NUR ---
Eoss No significant changes noted at this time, no sob or distress noted. Continues with pain management, continues to refuse repositioning. Able to changes wound dressing today, tolerated well. All needs were met. Call light within reach, bed locked, and low. Will endorse accordingly
[2018-06-30] MEDS ORDERED: DILTIAZEM-D5W 125MG/125ML DRIP 125 ML IV SCH (19:00)
--- NOTE | 2018-06-30 19:20 | NUR ---
notified John PRITCHARD regarding the administration of Cardizem drip, pending from Pharmacy
--- NOTE | 2018-06-30 23:59 | NUR ---
Pt HR is sustaining between 98 and 106 since start of shift. Unable to administer cardizem as heart rate is within parameter.
[2018-07-01] VITALS (13 sets, daily range): BP systolic 121–165; BP diastolic 58–73; PULSE 84–106; RESP 16–20
[2018-07-01] MEDS: SOD CHLORIDE 0.9% 1,000 ML IV SCH ×2 (04:43→14:05)
[2018-07-01] MEDS: INSULIN ASPART [NOVOLOG] 3 ML PEN SC SCH ×4 (06:00→18:00)
--- NOTE | 2018-07-01 07:52 | NUR ---
EOSS: Pt asleep in bed. VS stable. Heart rate has been below 110 during shift. Denies SOB, pain. Blood glucose wnl. Pt denies N/V as well. Rounded on hourly, bed in locked and low position, bed alarm green, bed rail x2, call light within reach; pt reminded to call when in need of assistance. Endorsed to [facility].
[2018-07-01] MEDS: MEROPENEM 1 GM/50ML(PMX) 50 ML IVPB SCH ×2 (08:25→21:25)
[2018-07-01] MEDS: FAMOTIDINE 20 MG INJ IV SCH ×2 (08:25→21:25)
[2018-07-01] MEDS: ENOXAPARIN 30 MG/0.3 ML SYG SC SCH (09:01)
--- NOTE | 2018-07-01 11:40 | PN ---
Date/Time of Note Date/Time of Note DATE: 07/01/18 TIME: 11:40 Assessment/Plan VTE Prophylaxis Risk score (from Ns)>0 risk: 3 SCD applied (from Ns): No SCD contraindicated: other Pharmacological prophylaxis: LMWH Lines/Catheters IV Catheter Type (from Nrs): Peripheral IV Assessment/Plan Hospital Course 1) small bowel obstruction - NPO - IV fluids - surgery consult pending - monitor clinically 2) urinary tract infection - IV antibiotics 3) atrial fibrillation - monitor on telemetry - PO meds on hold Result Diagram: 06/30/18 0552 06/30/18 0552 Results 24hrs Laboratory Tests Test 06/30/18 12:05 06/30/18 17:15 06/30/18 21:16 06/30/18 23:22 Bedside Glucose 98 107 100 120 Test 07/01/18 06:05 Bedside Glucose 114 Subjective 24 Hr Interval Summary Free Text/Dictation Patient seems to be doing better, wanting to eat Exam/Review of Systems Vital Signs Vitals Vital Signs Date Temp Pulse Resp B/P (MAP) Pulse Ox O2 O2 Flow FiO2 Time Delivery Rate 07/01/18 97.8 97 17 138/73 95 11:25 (94) 07/01/18 Room Air 04:11 Intake and Output 06/30/18 06/30/18 07/01/18 1515:00 23:00 07:00 IntakeIntake Total 50 ml 900 ml BalanceBalance 50 ml 900 ml Exam Constitutional: well developed Head: normocephalic, atraumatic Neck: supple Respiratory: diminished breath sounds Cardiovascular: regular rate and rhythm Gastrointestinal: soft, non-tender Extremities: normal pulses Medications Medications Current Medications Sodium Chloride 1,000 ml @ 100 mls/hr Q10H IV Last administered on 07/01/18at 04:43; Admin Dose 100 MLS/HR; Start 06/29/18 at 22:45 IV Flush (NS 3 ml) 3 ml PER PROTOCOL IV ; Start 06/29/18 at 23:00 Ondansetron HCl (Zofran Inj) 4 mg Q6H PRN IV NAUSEA AND/OR VOMITING Last administered on 06/30/18at 00:20; Admin Dose 4 MG; Start 06/29/18 at 23:00 Acetaminophen (Tylenol Supp) 650 mg Q6H PRN [place] PAIN LEVEL 1-3 OR FEVER; Start 06/29/18 at 23:00 Morphine Sulfate (morphine) 2 mg Q4H PRN IV PAIN LEVEL 7-10; Start 06/29/18 at 23:00 Famotidine (Pepcid Iv) 20 mg Q12 IV Last administered on 07/01/18at 08:25; Admin Dose 20 MG; Start 06/30/18 at 09:00 Enoxaparin Sodium (Lovenox) 30 mg DAILY SC Last administered on 07/01/18at 09:01; Admin Dose 30 MG; Start 06/30/18 at 09:00 Meropenem/Sodium Chloride 50 ml @ 100 mls/hr Q12 IVPB Last administered on 07/01/18at 08:25; Admin Dose 100 MLS/HR; Start 06/30/18 at 12:00 Ketorolac Tromethamine (Toradol) 15 mg Q6H PRN IV PAIN; Start 06/30/18 at 11:30; Stop 07/03/18 at 11:29 Insulin Aspart (Novolog Insulin Pen) NOVOLOG *MILD* ALGORI... Q6 SC ; Start 06/30/18 at 12:00 Miscellaneous Information 1 ea NOTE XX ; Start 06/30/18 at 12:00 Glucose (Glutose) 15 gm Q15M PRN PO DECREASED GLUCOSE; Start 06/30/18 at 12:00 Glucose (Glutose) 22.5 gm Q15M PRN PO DECREASED GLUCOSE; Start 06/30/18 at 12:00 Dextrose (D50w Syringe) 25 ml Q15M PRN IV DECREASED GLUCOSE; Start 06/30/18 at 12:00 Dextrose (D50w Syringe) 50 ml Q15M PRN IV DECREASED GLUCOSE; Start 06/30/18 at 12:00 Glucagon (Glucagen) 1 mg Q15M PRN IM DECREASED GLUCOSE; Start 06/30/18 at 12:00 Glucose (Glutose) 15 gm Q15M PRN BUCCAL DECREASED GLUCOSE; Start 06/30/18 at 12:00 Diltiazem HCl 125 ml @ 5 mls/hr TITRATE IV ; Start 06/30/18 at 19:00 NEVAEH JONAS Jul 01, 2018 11:40
--- NOTE | 2018-07-01 18:06 | NUR ---
Eoss Pt + for Ecoli and ESBL of the urine, pt kept in contact isolation, educated family re. the need to wear PPE and importance of handwashing. Verbalized understanding of the instructions. No significant changes noted. Pt remains NPO. Blood sugar is stable. All needs were met, no c/o pain or discomfort noted at this time. Will endorse accordingly
--- NOTE | 2018-07-01 22:07 | PN ---
Date/Time of Note Date/Time of Note DATE: 07/01/18 TIME: 22:02 Assessment/Plan Lines/Catheters IV Catheter Type (from Nrs): Peripheral IV Assessment/Plan Chief Complaint/Hosp Course 1. Abdominal pain, nausea, vomiting with CT concerning for small bowel obstruction. SBFT with pSBO but patient with flatus and bms. Requesting liquids. -clears -monitor closely -aspiration precautions. 2. Diverticulosis: -Diet & Lifestyle modification -Outpatient follow-up 3. Atherosclerosis: -Medical management 4. Leukocytosis: Resolved 5. Hypochromic anemia: -Monitor and transfuse as needed 6. UTI: -abx per sensitivity -frequent bladder emptying/cath care 7. Atrial fibrillation history with hypotension: Improved -Cardiac optimization 8. 14 mm adrenal nodule: -Medical follow-up 9. BMI 34 -nutrition and medication optimization -weight loss encouraged 10. 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 WBC normal. Pain improved to 3/10. No n/v. No f/c. No cp/sob. No cough. No sz. Multiple liquid bms. Flatus. Feels better. No singh/visual/neuro changes. Exam/Review of Systems Vital Signs Vitals Vital Signs Date Temp Pulse Resp B/P (MAP) Pulse Ox O2 O2 Flow FiO2 Time Delivery Rate 07/01/18 97.8 84 20 138/65 96 20:01 (89) 07/01/18 Room Air 04:11 Intake and Output 06/30/18 06/30/18 07/01/18 1515:00 23:00 07:00 IntakeIntake Total 50 ml 900 ml BalanceBalance 50 ml 900 ml Exam Free Text/Dictation Constitutional: alert, oriented Psych: nl mood/affect; No anxiety Head: normocephalic, atraumatic Eyes: nl conjunctiva, EOMI, nl sclera ENMT: nl external ears & nose, nl lips & teeth, mucosa pink and moist Neck: supple, non-tender; No jvd, No bruits, No masses, No thyromegaly, No nuchal rigidity, No other Respiratory: normal air movement; No labored breathing Cardiovascular: regular rate and rhythm, nl pulses Gastrointestinal: soft, min tender to deep palpation lower abdomen, surgical scars; No distended, No rebound or guarding Genitourinary - Female: nl external genitalia Musculoskeletal: nl extremities to inspection, nl gait and stance Extremities: normal pulses Neurological: nl mental status, nl speech, nl strength Skin: nl turgor; No rash or lesions Results Free Text/Dictation SBFT: The case work aide radiographs demonstrates dilated small bowel loops measuring up to approximate 5 cm diameter, dual chamber cardiac pacemaker leads, additional right ventricular cardiac pacemaker lead, surgical clips in the left upper pelvis, levoscoliosis of the lumbar spine, degenerative enthesopathy in lumbar spine, calcification in abdominal aorta and mild osteitis pubis Ingested contrast is seen in the unremarkable stomach, duodenum, nondilated and dilated loops of jejunum and ileum measuring up to approximately 5 cm diameter with contrast in the colon to the level of the proximal descending colon by 6 hours post ingestion suggestive of a partial distal small bowel obstruction. IMPRESSION: Findings suggestive of partial distal small bowel obstruction as noted above. Please see above. Result Diagram: 06/30/18 0552 06/30/18 0552 WILMAN COOPER MD Jul 01, 2018 22:07
[2018-07-02] VITALS (12 sets, daily range): BP systolic 125–152; BP diastolic 62–84; PULSE 75–93; RESP 18–20
[2018-07-02] MEDS: SOD CHLORIDE 0.9% 1,000 ML IV SCH ×4 (00:46→20:45)
[2018-07-02] MEDS: INSULIN ASPART [NOVOLOG] 3 ML PEN SC SCH ×4 (06:00→17:24)
--- NOTE | 2018-07-02 06:22 | NUR ---
EOSS: Pt asleep in bed. VS stable. HR <110 throughout shift. Denies pain, SOB, and N/V. Diet has been advanced to clear liquid, pt tolerating well. Blood glucose wnl; no coverage needed. Poss d/c today. Aox4, bed in locked and low position, bed alarm green, bed railx2, call light within reach; pt reminded to call when in need of assistance. Will endorse to dayshift RN.
[2018-07-02] MEDS: FAMOTIDINE 20 MG INJ IV SCH ×2 (08:43→21:11)
[2018-07-02] MEDS: MEROPENEM 1 GM/50ML(PMX) 50 ML IVPB SCH ×2 (08:43→21:11)
[2018-07-02] MEDS: ENOXAPARIN 30 MG/0.3 ML SYG SC SCH (09:04)
--- NOTE | 2018-07-02 09:32 | PN ---
Date/Time of Note Date/Time of Note DATE: 07/02/18 TIME: 09:28 Assessment/Plan Lines/Catheters IV Catheter Type (from Nrs): Peripheral IV Assessment/Plan Chief Complaint/Hosp Course 1. Abdominal pain, nausea, vomiting with CT concerning for small bowel obstruction. SBFT with pSBO but patient with flatus and bms; tolerating clears -advance to end goal diet of soft> if tolerating may be discharged per medical team -monitor closely -aspiration precautions 2. Diverticulosis: -Diet & Lifestyle modification -Outpatient follow-up 3. Atherosclerosis: -Medical management 4. Leukocytosis: Resolved 5. Hypochromic anemia: -Monitor and transfuse as needed 6. UTI: -abx per sensitivity -frequent bladder emptying/cath care 7. Atrial fibrillation history with hypotension: Improved -Cardiac optimization 8. 14 mm adrenal nodule: -Medical follow-up 9. BMI 34 -nutrition and medication optimization -weight loss encouraged 10. 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 Patient seen and examined in collaboration with Dr. Wali Bailon. Subjective 24 Hr Interval Summary Feels well. Tolerating clear liquids. No fevers, chills, sob, congested cough, cp, palpitations, singh, dizziness, n/v/d/dysuria. +bowel function. Exam/Review of Systems Vital Signs Vitals Vital Signs Date Temp Pulse Resp B/P (MAP) Pulse Ox O2 O2 Flow FiO2 Time Delivery Rate 07/02/18 89 08:00 07/02/18 97.5 18 149/79 97 Room Air 07:11 (102) Intake and Output 07/01/18 07/01/18 07/02/18 1515:00 23:00 07:00 IntakeIntake Total 1250 ml 1200 ml 950 ml OutputOutput Total 900 ml BalanceBalance 350 ml 1200 ml 950 ml Exam Free Text/Dictation Constitutional: alert, oriented Psych: nl mood/affect; No anxiety Head: normocephalic, atraumatic Eyes: nl conjunctiva, EOMI, nl sclera ENMT: nl external ears & nose, nl lips & teeth, mucosa pink and moist Neck: supple, non-tender; No jvd, No bruits, No masses, No thyromegaly, No nuchal rigidity, No other Respiratory: normal air movement; No labored breathing Cardiovascular: regular rate and rhythm, nl pulses Gastrointestinal: soft, min tender to deep palpation lower abdomen, surgical scars; No distended, No rebound or guarding Genitourinary - Female: nl external genitalia Musculoskeletal: nl extremities to inspection, nl gait and stance Extremities: normal pulses Neurological: nl mental status, nl speech, nl strength Skin: nl turgor; No rash or lesions Results Result Diagram: 06/30/18 0552 06/30/18 0552 JAIR MEDEIROS NP Jul 02, 2018 09:32
--- NOTE | 2018-07-02 11:45 | PN ---
Date/Time of Note Date/Time of Note DATE: 07/02/18 TIME: 11:44 Assessment/Plan VTE Prophylaxis Risk score (from Ns)>0 risk: 6 SCD applied (from Ns): Yes Pharmacological prophylaxis: LMWH Lines/Catheters IV Catheter Type (from Nrsg): Peripheral IV Assessment/Plan Hospital Course 1) small bowel obstruction - NPO - IV fluids - surgery consult pending - monitor clinically 2) urinary tract infection - IV antibiotics 3) atrial fibrillation - monitor on telemetry - PO meds on hold Result Diagram: 06/30/18 0552 06/30/18 0552 Results 24hrs Laboratory Tests Test 07/01/18 11:57 07/01/18 17:23 07/02/18 00:26 07/02/18 05:56 Bedside Glucose 91 90 89 79 Subjective 24 Hr Interval Summary Free Text/Dictation Patient is tolerating oral nutrition, will advance Exam/Review of Systems Vital Signs Vitals Vital Signs Date Temp Pulse Resp B/P (MAP) Pulse Ox O2 O2 Flow FiO2 Time Delivery Rate 07/02/18 97.4 85 18 152/84 99 Room Air 11:05 (106) Intake and Output 07/01/18 07/01/18 07/02/18 1515:00 23:00 07:00 IntakeIntake Total 1250 ml 1200 ml 950 ml OutputOutput Total 900 ml BalanceBalance 350 ml 1200 ml 950 ml Exam Constitutional: well developed Head: normocephalic, atraumatic Neck: supple Respiratory: diminished breath sounds Cardiovascular: regular rate and rhythm Gastrointestinal: soft, non-tender Extremities: normal pulses Medications Medications Current Medications Sodium Chloride 1,000 ml @ 100 mls/hr Q10H IV Last administered on 07/02/18at 00:46; Admin Dose 100 MLS/HR; Start 06/29/18 at 22:45 IV Flush (NS 3 ml) 3 ml PER PROTOCOL IV ; Start 06/29/18 at 23:00 Ondansetron HCl (Zofran Inj) 4 mg Q6H PRN IV NAUSEA AND/OR VOMITING Last administered on 06/30/18at 00:20; Admin Dose 4 MG; Start 06/29/18 at 23:00 Acetaminophen (Tylenol Supp) 650 mg Q6H PRN [place] PAIN LEVEL 1-3 OR FEVER; Start 06/29/18 at 23:00 Morphine Sulfate (morphine) 2 mg Q4H PRN IV PAIN LEVEL 7-10; Start 06/29/18 at 23:00 Famotidine (Pepcid Iv) 20 mg Q12 IV Last administered on 07/02/18at 08:43; Admin Dose 20 MG; Start 06/30/18 at 09:00 Enoxaparin Sodium (Lovenox) 30 mg DAILY SC Last administered on 07/02/18at 09:04; Admin Dose 30 MG; Start 06/30/18 at 09:00 Meropenem/Sodium Chloride 50 ml @ 100 mls/hr Q12 IVPB Last administered on 07/02/18at 08:43; Admin Dose 100 MLS/HR; Start 06/30/18 at 12:00 Ketorolac Tromethamine (Toradol) 15 mg Q6H PRN IV PAIN; Start 06/30/18 at 11:30; Stop 07/03/18 at 11:29 Insulin Aspart (Novolog Insulin Pen) NOVOLOG *MILD* ALGORI... Q6 SC ; Start 06/30/18 at 12:00 Miscellaneous Information 1 ea NOTE XX ; Start 06/30/18 at 12:00 Glucose (Glutose) 15 gm Q15M PRN PO DECREASED GLUCOSE; Start 06/30/18 at 12:00 Glucose (Glutose) 22.5 gm Q15M PRN PO DECREASED GLUCOSE; Start 06/30/18 at 12:00 Dextrose (D50w Syringe) 25 ml Q15M PRN IV DECREASED GLUCOSE; Start 06/30/18 at 12:00 Dextrose (D50w Syringe) 50 ml Q15M PRN IV DECREASED GLUCOSE; Start 06/30/18 at 12:00 Glucagon (Glucagen) 1 mg Q15M PRN IM DECREASED GLUCOSE; Start 06/30/18 at 12:00 Glucose (Glutose) 15 gm Q15M PRN BUCCAL DECREASED GLUCOSE; Start 06/30/18 at 12:00 Diltiazem HCl 125 ml @ 5 mls/hr TITRATE IV ; Start 06/30/18 at 19:00 NEVAEH JONAS Jul 02, 2018 11:45
[2018-07-02] MEDS ORDERED: morphine 4 MG/ML VIAL IV PRN (16:00)
[2018-07-03] VITALS (8 sets, daily range): BP systolic 108–145; BP diastolic 58–71; PULSE 77–97; RESP 18–20
[2018-07-03] MEDS: SOD CHLORIDE 0.9% 1,000 ML IV SCH (03:13)
[2018-07-03] MEDS: INSULIN ASPART [NOVOLOG] 3 ML PEN SC SCH ×3 (06:00→11:43)
--- NOTE | 2018-07-03 07:00 | NUR ---
EOSS Pt AAO x4. No s/s of respiratory distress, pain or discomfort. Pt refused bed alarm. She is able to walk steady to the bathroom.No acute changes
[2018-07-03] MEDS: FAMOTIDINE 20 MG INJ IV SCH (09:05)
[2018-07-03] MEDS: MEROPENEM 1 GM/50ML(PMX) 50 ML IVPB SCH (09:05)
[2018-07-03] MEDS: ENOXAPARIN 30 MG/0.3 ML SYG SC SCH (09:11)
--- NOTE | 2018-07-03 09:40 | PN ---
Date/Time of Note Date/Time of Note DATE: 07/03/18 TIME: 09:38 Assessment/Plan Lines/Catheters IV Catheter Type (from Nrs): Peripheral IV Assessment/Plan Chief Complaint/Hosp Course 1. Abdominal pain, nausea, vomiting with CT concerning for small bowel obstruction. SBFT with pSBO but patient with continuous bowel function. -soft diet> may be discharged per medical team f/u w deputy sheriff building guard/onc -increase fluids -monitor closely -aspiration precautions 2. Diverticulosis: -Diet & Lifestyle modification -Outpatient follow-up 3. Atherosclerosis: -Medical management 4. Leukocytosis: Resolved 5. Hypochromic anemia: -Monitor and transfuse as needed 6. UTI: -abx per sensitivity -frequent bladder emptying/cath care 7. Atrial fibrillation history with hypotension: Improved -Cardiac optimization 8. 14 mm adrenal nodule: -Medical follow-up 9. BMI 34 -nutrition and medication optimization -weight loss encouraged 10. Ovarian ca hx s/p KATHERINE/BSO and radiation -deputy sheriff building guard onc f/u Thank you. Patient seen and examined in collaboration with Dr. Wali Bailon. Subjective 24 Hr Interval Summary Feels well. Tolerating soft diet. No fevers, chills, sob, congested cough, cp, palpitations, singh, dizziness, n/v/d/dysuria. +bowel function. Exam/Review of Systems Vital Signs Vitals Vital Signs Date Temp Pulse Resp B/P (MAP) Pulse Ox O2 O2 Flow FiO2 Time Delivery Rate 07/03/18 94 08:00 07/03/18 97.6 18 145/71 97 Room Air 07:05 (95) Intake and Output 07/02/18 07/02/18 07/03/18 1515:00 23:00 07:00 IntakeIntake Total 610 ml 1000 ml BalanceBalance 610 ml 1000 ml Exam Free Text/Dictation Constitutional: alert, oriented Psych: nl mood/affect; No anxiety Head: normocephalic, atraumatic Eyes: nl conjunctiva, EOMI, nl sclera ENMT: nl external ears & nose, nl lips & teeth, mucosa pink and moist Neck: supple, non-tender; No jvd, No bruits, No masses, No thyromegaly, No nuchal rigidity, No other Respiratory: normal air movement; No labored breathing Cardiovascular: regular rate and rhythm, nl pulses Gastrointestinal: soft, min tender to deep palpation lower abdomen, surgical scars; No distended, No rebound or guarding Genitourinary - Female: nl external genitalia Musculoskeletal: nl extremities to inspection, nl gait and stance Extremities: normal pulses Neurological: nl mental status, nl speech, nl strength Skin: nl turgor; No rash or lesions Results Result Diagram: 06/30/18 0552 06/30/18 0552 JAIR MEDEIROS NP Jul 03, 2018 09:40
--- NOTE | 2018-07-03 11:09 | DS ---
Date/Time of Note Date/Time of Note DATE: 07/03/18 TIME: 11:07 Discharge Summary Admission/Discharge Info Admit Date/Time Jun 29, 2018 at 21:49 Discharge Date/Time 07/03/18 Discharge Diagnosis 1) urinary tract infection 2) small bowel obstruction 3) diabetes mellitus Patient Condition: Fair Consults surgery Procedures none Hx of Present Illness Patient with diabetes, hypertension, atrial fibrillation s/p pacemaker placem ent, coronary artery disease comes in to the ER with abdominal pain, nausea and vomiting x1d. Patient was found to have small bowel obstruction. Hospital Course Patient with diabetes, hypertension, atrial fibrillation s/p pacemaker p lacement, coronary artery disease comes in to the ER with abdominal pain, nausea and vomiting x1d. Patient was found to have small bowel obstruction. Patient was kept NPO and given IV antibiotics. Patient's bowels improved and patient was able to tolerate oral nutrition. Patient was back to baseline and will be sent home with a course of oral antibiotics 1) small bowel obstruction - NPO - IV fluids - surgery consult pending - monitor clinically 2) urinary tract infection - IV antibiotics 3) atrial fibrillation - monitor on telemetry - PO meds on hold Home Meds Active Scripts Loperamide Hcl* (Imodium*) 2 Mg Capsule, 2 MG PO .AFTER EA LOOSE BM PRN for DIARRHEA, #10 TAB Prov:CHRISTIAN GONZALEZ MD 04/05/18 Ondansetron (Ondansetron Odt) 4 Mg Tab.rapdis, 4 MG PO Q6H PRN for NAUSEA AND/OR VOMITING, #10 TAB Prov:CHRISTIAN GONZALEZ MD 04/05/18 Reported Medications Carvedilol* (Coreg*) 6.25 Mg Tablet, 6.25 MG PO BID, #60 TAB 06/08/17 Clopidogrel Bisulfate (Clopidogrel) 75 Mg Tablet, 75 MG PO DAILY, #30 TAB 06/08/17 Aspirin* (Aspirin* Chew) 81 Mg Tab.chew, 81 MG PO DAILY, TAB.CHEW 06/08/17 Sitagliptin* (Januvia*) 100 Mg Tablet, 100 MG PO DAILY 06/14/12 Glimepiride* (Glimepiride*) 2 Mg Tablet, 2 MG PO DAILY 06/14/12 Primary Care Provider Francisco Contreras MD Pending Labs Laboratory Tests Test 07/02/18 11:40 07/02/18 17:23 07/03/18 00:33 07/03/18 06:50 Bedside 106 103 107 109 Glucose mg/dL (70-220) mg/dL (70-220) mg/dL (70-220) mg/dL (70-220) NEVAEH JONAS Jul 03, 2018 11:09
--- NOTE | 2018-07-03 15:00 | NUR ---
RN NOTES SPOKED WITH CLAY JOHNSON DTR AND GAVE HER THE HOME INSTRUCTIONS, SHE VERBALIZED UNDERSTANDING. REFUSED TO HAVE PICTURE OF HER SACRUM AND HEEL. HEART MONITOR REMOVED.
--- NOTE | 2018-07-03 15:19 | NUR ---
RN NOTES DISCHARGE THE PT. IN STABLE CONDITION. ALL D/C PAPERS WAS GIVEN AND ALL BELONGINGS. WHEELED DOWN PER WHEELCHAIR.
== END 2018-07-03 15:13 | disposition home or self-care (01) | DRG 389 ==
LOC: E/R 18:58 → TEL 21:49
PROVIDERS: ADMIT Internal Medicine; ATTEND Internal Medicine
DX: K56.609 Unspecified intestinal obstruction, unspecified as to partial versus complete obstruction (principal); N39.0 Urinary tract infection, site not specified; E11.9 Type 2 diabetes mellitus without complications; I48.91 Unspecified atrial fibrillation; K57.90 Diverticulosis of intestine, part unspecified, without perforation or abscess without bleeding; I10 Essential (primary) hypertension; Z95.0 Presence of cardiac pacemaker; I25.10 Atherosclerotic heart disease of native coronary artery without angina pectoris; Z79.82 Long term (current) use of aspirin; Z85.43 Personal history of malignant neoplasm of ovary; D50.9 Iron deficiency anemia, unspecified
CPT/HCPCS: 36415; 71045; 74177; 74250; 80053; 81001; 82962; 83036; 83690; 84484; 85025; 87075; 87086; 93005; 96361; 96374; 96375; J1650; J1815; J2185; J2270; J2405; J7030; J7040; Q9967

== ENCOUNTER → 2018-11-27 | Outpatient (CLI) | payer MEDICARE, OTHER | END | disposition home or self-care (01) | LOC: EDBD → C/S 16:35 | PROVIDERS: ATTEND Orthopaedic Surgery | DX: M17.0 Bilateral primary osteoarthritis of knee (principal) | CPT/HCPCS: 73700 ==

== ENCOUNTER 2019-05-15 14:48 | Emergency (ER) | payer MEDICARE, OTHER ==
[~2019-05-15] VITALS: Ht 165.1 cm; Wt 82.5 kg
[~2019-05-15 14:48] MED LIST changes: +CARV6.2579 PO; +CLOP75TA19 PO; +DILT180T PO; -GLIM2TAB PO; +GLIM2TAB2 PO; +SITA50TA2 PO
[2019-05-15 14:51] VITALS: Ht 165.1 cm; Wt 82.5 kg
[2019-05-15 20:30] VITALS: BP 118/60; PULSE 60; RESP 17
== END 2019-05-15 20:30 | disposition home or self-care (01) ==
LOC: E/R 14:48
DX: R07.9 Chest pain, unspecified (principal); I10 Essential (primary) hypertension; Z79.01 Long term (current) use of anticoagulants; Z79.82 Long term (current) use of aspirin; Z85.43 Personal history of malignant neoplasm of ovary; Z95.0 Presence of cardiac pacemaker
CPT/HCPCS: 71045; 80053; 82550; 82553; 83690; 84484; 85025; 93005